=== PATIENT | female | born 1955 | race Caucasian/White ===

== ENCOUNTER 2017-01-07 17:45 | Emergency (ER) | payer BC, OTHER ==
[~2017-01-07] VITALS: Ht 170.2 cm; Wt 59.9 kg
[2017-01-07] MEDS ORDERED: LIDOCAINE 1%, 20ML ONE (18:18)
[2017-01-07 19:03] VITALS: BP 123/83
== END 2017-01-07 19:05 | disposition home or self-care (01) ==
LOC: ED 18:59
DX: L02.211 Cutaneous abscess of abdominal wall (principal); Z90.49 Acquired absence of other specified parts of digestive tract
CPT/HCPCS: 10060; 99283

== ENCOUNTER 2017-01-24 14:55 | Emergency (ER) | payer BC ==
[~2017-01-24] VITALS: Ht 170.2 cm; Wt 59.1 kg
[2017-01-24 15:01] VITALS: BP 158/95
[2017-01-24] MEDS ORDERED: LIDOCAINE 1%, 10ML INFIL ONE (15:30)
[2017-01-24] MEDS ORDERED: LIDOCAINE 1%, 20ML ONE (15:45)
== END 2017-01-24 16:21 | disposition home or self-care (01) ==
LOC: ED 16:15
DX: L03.311 Cellulitis of abdominal wall (principal); L02.212 Cutaneous abscess of back [any part, except buttock and flank]
CPT/HCPCS: 99283